=== PATIENT | female | born 1945 | race Caucasian/White ===

== ENCOUNTER 2018-10-02 07:40 | Day surgery (SDC) | payer OTHER ==
[2018-10-02] MEDS ORDERED: NA CHLORIDE 0.9% 1,000 ML ONE (08:06)
[2018-10-02] MEDS ORDERED: LIDOCAINE 1% MPF 5 ML VIAL ONE (10:02)
[2018-10-02] MEDS ORDERED: PROPOFOL 200 MG/20 ML VIAL IV ONE ×3 (10:02→11:09)
[2018-10-02 11:03] VITALS: TEMP 97.3
[2018-10-02 11:27] VITALS: BP 128/72; O2SAT 98
--- NOTE | 2018-10-02 11:52 | ENDO RPT ---
[address], [address] COLONOSCOPY PROCEDURE REPORT EXAM DATE: 10/02/2018 PATIENT NAME: Montse Arce MR #: [id number] BIRTHDATE: 1945 ATTENDING: Perez Hernández DR STATUS: outpatient PLATEN BUILDER UP: Mat Nolan cfgAdvance Tech INDICATIONS: The patient is a 72 yr old Female here for a colonoscopy due to colon cancer screening PROCEDURE PERFORMED: Colonoscopy with biopsy - cold polypectomy MEDICATIONS: Per Anesthesia. ESTIMATED BLOOD LOSS: None CONSENT: The patient understands the risks and benefits of the procedure and understands that these risks include, but are not limited to: sedation, allergic reaction, infection, perforation and/or bleeding. Alternative means of evaluation and treatment include, among others: physical exam, x-rays, and/or surgical intervention. The patient elects to proceed with this endoscopic procedure. DESCRIPTION OF PROCEDURE: During intra-op preparation period all mechanical medical equipment was checked for proper function. Hand hygiene and appropriate measures for infection prevention was taken. Procedure, possible complications, alternatives including, but not limited to possibility of bleeding, perforation, tear, infection, sepsis, need for surgery, need for blood transfusion, were explained to the patient. After the risks, benefits and alternatives of the procedure were thoroughly explained, Informed consent was verified, confirmed and timeout was successfully executed by the treatment team. The patient was placed in the left lateral position. A digital rectal exam was performed and revealed internal hemorrhoids. After appropriate level of anesthesia, the scope was passed. The EC-3890Li ([id number]) endoscope was introduced through the anus and advanced to the cecum, which was identified by both the appendix and ileocecal valve. The quality of the prep was poor. The instrument was then slowly withdrawn as the colon was fully examined. Scope withdrawal time was 15 minutes. COLON FINDINGS: Two small smooth and polypoid shaped semi-pedunculated polyps with friable surfaces were found at the cecum and hepatic flexure. A polypectomy was performed using snare cautery. The resection was complete, the polyp tissue was completely retrieved and sent to histology. Retroflexed views revealed no abnormalities. The scope was then completely withdrawn from the patient and the procedure terminated. ADVERSE EVENTS: There were no complications. IMPRESSIONS: Two small semi-pedunculated polyps were found at the cecum and hepatic flexure; polypectomy was performed using snare cautery RECOMMENDATIONS: 1. avoid NSAIDS for 2 weeks 2. await biopsy results 3. fiber rich diet 4. follow-up: office 2 week(s) 5. Monitor for any evidence of rectal bleeding. 6. See EGD report. 7. hemorrhoidal hygiene 8. increase dietary water RECALL: Return in 2 year(s) for Colonoscopy, pending biopsy results. Poor Prep - 2 Day prep on next colonoscopy Perez Hernández DR eSigned: Perez Hernández DR 10/02/2018 10:58 AM cc: CPT CODES: ICD9 CODES: PATIENT NAME: Montse Arce MR#: [id number]
--- NOTE | 2018-10-02 11:52 | ENDO RPT ---
[address], [address] EGD PROCEDURE REPORT EXAM DATE: 10/02/2018 PATIENT NAME: Montse Arce MR#: [id number] BIRTHDATE: 1945 ATTENDING: Perez Hernández DR STATUS: outpatient BUTCHER HELPER: Tara Kuhn RN, Saranya Calle, and Mat Calle INDICATIONS: The patient is a 72 yr old Female here for an EGD due to Personal history of Babin's esophagus PROCEDURE PERFORMED: EGD with biopsy MEDICATIONS: Per Anesthesia. TOPICAL ANESTHETIC: none CONSENT: The patient understands the risks and benefits of the procedure and understands that these risks include, but are not limited to: sedation, allergic reaction, infection, perforation and/or bleeding. Alternative means of evaluation and treatment include, among others: physical exam, x-rays, and/or surgical intervention. The patient elects to proceed with this endoscopic procedure. DESCRIPTION OF PROCEDURE: During intra-op preparation period all mechanical medical equipment was checked for proper function. Hand hygiene and appropriate measures for infection prevention was taken. Procedure, possible complications, and alternatives including but not limited to the possibility of bleeding, perforation, tear, infection, sepsis, need for surgery, need for blood transfusion, and anesthesia related complications were explained to the patient. After the risks, benefits and alternatives of the procedure were thoroughly explained, Informed consent was verified, confirmed and timeout was successfully executed by the treatment team. The patient was placed in the left lateral position. The patient was anesthetized with topical anesthesia. Through the anesthetized oropharyngeal area, the scope was passed without any difficulty. The EC-3890Li ([id number]) and Pentax EG-[id number] ([id number]) endoscope was introduced through the mouth and advanced to the second portion of the duodenum. Retroflexed views revealed a moderate sized hiatal hernia. The gastroscope was then slowly withdrawn and removed. Duodenitis was found in the bulb and descending duodenum. A biopsy of the GEJ was obtained to rule out Babin's in 4 quadrants at the Z line. A biopsy for H. pylori was taken. Mild gastritis was found at the pylorus. A biopsy was performed for pathology and for H. pylori. A moderate sized hiatal hernia was found in the fundus @ 38 cm from incisors, A biopsy for was perfomed as well as specimen for H. pylori was taken. Z-Line was slightly irregular, no obvious Barretts, no nodularity. ADVERSE EVENTS: There were no complications. IMPRESSIONS: 1. Duodenitis was found in the bulb and descending duodenum 2. Mild gastritis was found at the pylorus 3. 38 cm A moderate sized hiatal hernia was found in the fundus 4. Z-Line was slightly irregular, no obvious barretts, no nodularity. RECOMMENDATIONS: 1. acid suppression therapy 2. anti-reflux regimen 3. await biopsy results 4. follow-up: office 2 week(s) 5. avoid NSAIDS 6. follow-up of helicobacter pylori status, treat if indicated REPEAT EXAM: Return in 2 year(s) for EGD. Perez Hernández DR eSigned: Perez Hernández DR 10/02/2018 10:54 AM cc: CPT CODES: ICD9 CODES: PATIENT NAME: Montse Arce MR#: [id number]
== END 2018-10-02 11:30 | disposition home or self-care (01) ==
LOC: OR 07:40
PROVIDERS: ATTEND Surgery
PROC: 0DBH8ZX Excision of Cecum, Via Natural or Artificial Opening Endoscopic, Diagnostic (ICD-10-PCS; 2018-10-02)
PROC: 0DBL8ZX Excision of Transverse Colon, Via Natural or Artificial Opening Endoscopic, Diagnostic (ICD-10-PCS; 2018-10-02)
PROC: 0DB48ZX Excision of Esophagogastric Junction, Via Natural or Artificial Opening Endoscopic, Diagnostic (ICD-10-PCS; principal; 2018-10-02 09:15)
PROC: 0DB78ZX Excision of Stomach, Pylorus, Via Natural or Artificial Opening Endoscopic, Diagnostic (ICD-10-PCS; 2018-10-02 09:15)
DX: Z12.11 Encounter for screening for malignant neoplasm of colon (principal); D12.2 Benign neoplasm of ascending colon; D12.0 Benign neoplasm of cecum; K29.50 Unspecified chronic gastritis without bleeding; K21.0 Gastro-esophageal reflux disease with esophagitis; K44.9 Diaphragmatic hernia without obstruction or gangrene; K29.80 Duodenitis without bleeding; K64.8 Other hemorrhoids; I10 Essential (primary) hypertension; E11.9 Type 2 diabetes mellitus without complications; E78.5 Hyperlipidemia, unspecified; J44.9 Chronic obstructive pulmonary disease, unspecified; Z79.82 Long term (current) use of aspirin; Z85.828 Personal history of other malignant neoplasm of skin; Z80.1 Family history of malignant neoplasm of trachea, bronchus and lung
CPT/HCPCS: 82962; 88305; 88312; 88313; J2704; J7030

== ENCOUNTER 2019-03-10 06:41 | Day surgery (SDC) | payer OTHER ==
--- NOTE | 2019-03-07 11:35 | RAD REPORT ---
EXAM DESCRIPTION: Vikram Sparks And Lat (2 Views)03/07/2019 11:21 am CLINICAL HISTORY: Preop for breast surgery COMPARISON: January 2019 FINDINGS: The lungs appear clear of acute infiltrate. The heart is normal size. The aorta is tortuo us/ectatic IMPRESSION: No acute abnormalities displayed
[2019-03-07 12:28] LABS: Basophils % 1.2 % (0-1.3); Hematocrit 37.4 % (36.0-45.0); Lymphocytes % 26.1 % (15.3-44.8); MPV 9.1 fL (7.6-11.3); RBC Red Blood Cell Count 4.13 M/uL (3.86-4.86)
--- NOTE | 2019-03-07 12:33 | EKG ---
Test Date: 2019-03-07 Test Time: 11:11:48 [employer] Specialist: ISAEL MEASUREMENT RESULTS: Intervals: Rate: 69 IN: 216 QRSD: 94 QT: 392 QTc: 420 [place]: P: 6 IN: 216 QRS: -25 T: 12 INTERPRETIVE STATEMENTS: Sinus rhythm with 1st degree AV block Low voltage QRS Borderline ECG Compared to ECG 03/22/2015 12:05:01 Low QRS voltage now present Myocardial infarct finding no longer present Electronically Signed On 03-07-19 12:32:35 CDT by Buddy Bourgeois
[2019-03-07 12:37] LABS: Potassium 3.7 mmol/L (3.5-5.1)
[2019-03-10] MEDS ORDERED: CEFAZOLIN/SWI 1gm 1 GM/10 ML SYR ONE (06:44)
[2019-03-10] MEDS ORDERED: NA CHLORIDE 0.9% 1,000 ML ONE (06:44)
[2019-03-10] MEDS ORDERED: METHYLENE BLUE 0.5% 10 ML AMP ONE (08:38)
[2019-03-10] MEDS ORDERED: PROPOFOL 200 MG/20 ML VIAL IV ONE (08:40)
[2019-03-10] MEDS ORDERED: MIDAZOLAM HCL 2 MG/2 ML INJ ONE (08:40)
[2019-03-10] MEDS ORDERED: FENTANYL CITR 100 MCG/2 ML ONE (08:40)
[2019-03-10] MEDS ORDERED: LIDOCAINE 2% MPF 5 ML VIAL ONE (08:40)
[2019-03-10] MEDS ORDERED: ONDANSETRON 4 MG/2 ML VIAL ONE (08:41)
--- NOTE | 2019-03-10 09:15 | RAD REPORT ---
EXAM DESCRIPTION: US - Brst,Preop NL Wire Init w/Guid - 03/10/2019 9:06 am CLINICAL HISTORY: Preoperative knee localization left breast mass COMPARISON: Ultrasound imaging January 31 TECHNIQUE: Patient presents for ultrasound-guided needle localization of a 13 millimeter hypoechoic mass retroareolar left breast. Prior imaging studies were reviewed. Consent was obtained as part of t he surgical consent. The needle localization portion of today's procedures was discussed with the patient in detail. Kanika ariza consent was obtained. Preliminary imaging identified the hypoechoic mass retroareolar 12 o'clock left breast. Anterior skin was prepped and draped in the usual sterile fashion. From a lateral approach a 7.5 centimeter long H elizabeth mammo lock needle was advanced. Prior to localization needle placement skin and deeper tissues w ere anesthetized with 1% lidocaine. The localization needle was advanced. Tip was placed on the deep or posterior margin of the mass and the hookwire set. Patient tolerated procedure without complications and was transferred back to the surgical holding ar ronak pending excisional biopsy. IMPRESSION: Ultrasound-guided needle localization was performed of the retroareolar 12 o'clock left breast mass.
[2019-03-10] MEDS ORDERED: KETOROLAC 30 MG/ML INJ ONE (09:50)
[2019-03-10 10:34] VITALS: TEMP 97.6
--- NOTE | 2019-03-10 11:22 | RAD REPORT ---
EXAM DESCRIPTION: US - Surgical Specimen - 03/10/2019 10:02 am FINDINGS: Limited sonography was performed of the specimen. Zero choir remained within the specimen tissue. Sonographic evaluation shows an intact 8 millimeter component of the previously localized mass. The l arger component appears to have collapsed. This may represent a complex cyst. No other significant or unexpected findings noted.
[2019-03-10 11:31] VITALS: BP 146/58; O2SAT 97
--- NOTE | 2019-03-10 21:13 | OP ---
Date of Procedure: 03/10/2019 Surgeon: Iain Flower MD Preoperative Diagnosis: Left breast mass. Postoperative Diagnosis: Left breast mass. Procedure: Needle localization with excision of left breast mass. Estimated Blood Loss: Minimal. Specimens: Left breast mass. Finding: As above. Anesthesia: General. Complications: None. Disposition: Patient tolerated the procedure in stable condition, taken to Recovery in good general condition. Procedure In Detail: The patient was brought to the OR and placed in supine position. General anest hesia was begun. Patient was prepped and draped in usual sterile fashion. A 15-blade was used to ma ke a curvilinear incision at approximately 3 cm at the 12 o'clock position around the nipple-areolar margins. Subcu tissue divided. Tract of the needle identified, core tissue at the tip of the needle excised, sent to Radiology, confirmation obtained. Wound irrigated. Bleeding controlled with caute ry. 2-0 chromic used to approximate the subcutaneous tissue and close the skin. Sterile dressing wa s applied. The patient was awakened and taken to Recovery in good general condition. Discharge Note: The patient will go to Day Surgery and home when stable. Disposition: Home. Condition: Stable. Discharge Instructions: Resume home medications and diet. Activity as tolerated. No heavy lifting. Remove outer dressing in 2 days. Shower. Keep wound clean and dry. Follow up in my office in a meryl thayer, call for appointment. Tylenol No. 3 one tablet p.o. q.4 p.r.n. pain. Keep Steri-Strips on at a ll times. /MODL Voice ID: [id number] Report ID: [id number]
== END 2019-03-10 11:30 | disposition home or self-care (01) ==
LOC: OR 06:41
PROVIDERS: ATTEND Surgery
PROC: 0HBU0ZX Excision of Left Breast, Open Approach, Diagnostic (ICD-10-PCS; principal; 2019-03-10 09:00)
DX: D24.2 Benign neoplasm of left breast (principal); N63.21 Unspecified lump in the left breast, upper outer quadrant; N60.92 Unspecified benign mammary dysplasia of left breast; N60.82 Other benign mammary dysplasias of left breast; N60.42 Mammary duct ectasia of left breast; E11.9 Type 2 diabetes mellitus without complications; Z79.84 Long term (current) use of oral hypoglycemic drugs; Z79.899 Other long term (current) drug therapy
CPT/HCPCS: 19125; 93005; 85025; 80048; 36415; 82962 ×2; 88305; 71046; 76098; 19285; J2704; J2250; J3010; J0690; J7030; J2405

== ENCOUNTER 2021-03-14 07:50 | Day surgery (SDC) | payer OTHER ==
[2021-03-14] MEDS: NA CHLORIDE 0.9% 1,000 ML ONE (08:20)
[2021-03-14] MEDS ORDERED: LIDOCAINE 1% MPF 5 ML VIAL ONE (09:27)
[2021-03-14] MEDS ORDERED: propofoL 200 MG/20 ML VIAL IV ONE ×2 (09:27→09:28)
--- NOTE | 2021-03-14 09:40 | ENDO RPT ---
[address], [address] COLONOSCOPY PROCEDURE REPORT EXAM DATE: 03/14/2021 PATIENT NAME: Montse Arce MR #: [id number] BIRTHDATE: 1945 ATTENDING: Perez Hernández DR STATUS: outpatient RESERVATIONS CLERK: Frances Hunt RN and Izzy Chu RN INDICATIONS: The patient is a 75 yr old Female here for a colonoscopy due to colon cancer screening PROCEDURE PERFORMED: Colonoscopy and Screening Colonoscopy MEDICATIONS: Per Anesthesia. ESTIMATED BLOOD LOSS: None CONSENT: The patient understands the risks and benefits of the procedure and understands that these risks include, but are not limited to: sedation, allergic reaction, infection, perforation and/or bleeding. Alternative means of evaluation and treatment include, among others: physical exam, x-rays, and/or surgical intervention. The patient elects to proceed with this endoscopic procedure. DESCRIPTION OF PROCEDURE: During intra-op preparation period all mechanical medical equipment was checked for proper function. Hand hygiene and appropriate measures for infection prevention was taken. Procedure, possible complications, alternatives including, but not limited to possibility of bleeding, perforation, tear, infection, sepsis, need for surgery, need for blood transfusion, were explained to the patient. After the risks, benefits and alternatives of the procedure were thoroughly explained, Informed consent was verified, confirmed and timeout was successfully executed by the treatment team. The patient was placed in the left lateral position. A digital rectal exam was performed and revealed internal hemorrhoids. After appropriate level of anesthesia, the scope was passed. The EC-3890Li ([id number]) endoscope was introduced through the anus and advanced to the cecum, which was identified by both the appendix and ileocecal valve. The quality of the prep was fair. The instrument was then slowly withdrawn as the colon was fully examined. Scope withdrawal time was 8 minutes. COLON FINDINGS: A normal appearing cecum, ileocecal valve, and appendiceal orifice were identified. the ascending, transverse, descending, sigmoid colon, and rectum appeared unremarkable. Retroflexed views revealed no abnormalities. The scope was then completely withdrawn from the patient and the procedure terminated. ADVERSE EVENTS: There were no complications. IMPRESSIONS: A normal appearing cecum, ileocecal valve, and appendiceal orifice were identified. the ascending, transverse, descending, sigmoid colon, and rectum appeared unremarkable RECOMMENDATIONS: 1. await biopsy results 2. fiber rich diet 3. Monitor for any evidence of rectal bleeding. 4. hemorrhoidal hygiene 5. yearly hemoquant 6. yearly hemoccult starting in 4 years 7. increase dietary water RECALL: Return in 5 year(s) for Colonoscopy. Cologuard in [address] eSigned: Perez Hernández DR 03/14/2021 9:40 AM cc: CPT CODES: ICD9 CODES: PATIENT NAME: Montse Arce MR#: [id number]
[2021-03-14 14:20] VITALS: O2SAT 98
[2021-03-14 14:23] VITALS: BP 123/66
== END 2021-03-14 10:20 | disposition home or self-care (01) ==
LOC: OR 07:50
PROVIDERS: ATTEND Surgery
PROC: 0DJD8ZZ Inspection of Lower Intestinal Tract, Via Natural or Artificial Opening Endoscopic (ICD-10-PCS; principal; 2021-03-14 09:15)
DX: Z12.11 Encounter for screening for malignant neoplasm of colon (principal); K64.8 Other hemorrhoids; J44.9 Chronic obstructive pulmonary disease, unspecified; E11.9 Type 2 diabetes mellitus without complications; I10 Essential (primary) hypertension; Z20.822 Contact with and (suspected) exposure to COVID-19
CPT/HCPCS: 82947; U0003; J2704 ×2; J7030; G0121

== ENCOUNTER 2022-06-21 07:46 | Day surgery (SDC) | payer OTHER ==
--- NOTE | 2022-06-19 15:44 | RAD REPORT ---
EXAM DESCRIPTION: RAD - Chest Pa And Lat (2 Views) - 06/19/2022 3:39 pm CLINICAL HISTORY: Pre op pending lesion removal from toe Chest pain. COMPARISON: Chest Pa And Lat (2 Views) dated 03/07/2019; Chest Pa And Lat (2 Views) dated 01/13/2019; C HEST SINGLE VIEW dated 02/24/2015; CHEST SINGLE VIEW dated 12/01/2008 TECHNIQUE: PA and lateral views of the chest were obtained. FINDINGS: The lungs are hyperexpanded compatible with COPD. The heart is upper limit of normal in si ze. No fracture or aggressive bony process. IMPRESSION: COPD without acute process identified.
[2022-06-19 16:03] LABS: Absolute Lymphocytes (CBC) 2.4 K/uL (0.7-4.9); Hematocrit 37.1 % (36.0-45.0); Lymphocytes % 23.3 % (15.3-44.8); MCV 90.3 fL (80-100); MPV 8.2 fL (7.6-11.3); RBC Red Blood Cell Count 4.11 M/uL (3.86-4.86)
[2022-06-19 16:14] LABS: Potassium 4.2 mmol/L (3.5-5.1)
--- NOTE | 2022-06-20 08:22 | EKG ---
Test Date: 2022-06-19 Test Time: 15:25:03 Program Manufacturing Leader: DARRELL MEASUREMENT RESULTS: Intervals: Rate: 72 NC: 212 QRSD: 138 QT: 420 QTc: 459 [place]: P: -2 NC: 212 QRS: 5 T: 56 INTERPRETIVE STATEMENTS: Sinus rhythm with 1st degree AV block Left bundle branch block Abnormal ECG Compared to ECG 03/07/2019 11:11:48 Left bundle-branch block now present Electronically Signed On 06-20-22 08:19:50 CENTRAL SCHEDULER by Buddy Bourgeois
[2022-06-21] MEDS ORDERED: Ringers Lactate 1,000 ML IV ONE (07:54)
[2022-06-21] MEDS ORDERED: NA CHLORIDE 0.9% 1,000 ML ONE (08:20)
[2022-06-21] MEDS: CEFAZOLIN SODIUM 1 GM/VIAL ONE ×2 (08:27→09:37)
[2022-06-21] MEDS ORDERED: propofoL 200 MG/20 ML VIAL IV ONE (09:27)
[2022-06-21] MEDS ORDERED: FENTANYL CITR 100 MCG/2 ML ONE (09:28)
[2022-06-21] MEDS ORDERED: MIDAZOLAM HCL 2 MG/2 ML INJ ONE (09:28)
[2022-06-21] MEDS ORDERED: ONDANSETRON 4 MG/2 ML VIAL ONE (10:06)
--- NOTE | 2022-06-21 10:13 | P.BOP ---
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
[2022-06-21 14:28] VITALS: BP 142/62; TEMP 97.1; O2SAT 99
--- NOTE | 2022-06-21 19:20 | DS ---
Diagnosis: Lentiginous junctional severe dysplastic nevus. Procedure: Wide excision of severe dysplastic nevus. Disposition: Home. Activity: As tolerated. No heavy lifting. Discharge Instructions: Keep area dry and clean until next visit. If she take a shower, she may use the cast protector just to cover her foot so her foot does not get wet. DOMONIQUE/ECHO Voice ID: [id number] Report ID: [id number]
--- NOTE | 2022-06-21 19:20 | OP ---
Date of Procedure: 06/21/2022 Surgeon: Quang Traore MD Preoperative Diagnosis: Lentiginous junctional severe dysplastic nevus on the right medial toe. Postoperative Diagnosis: Lentiginous junctional severe dysplastic nevus on the right medial toe. Procedure: Wide excision of about 2 x 2 cm of lentiginous junctional severe dysplastic nevus in the right medial toe. Estimated Blood Loss: Less than 2 cc. Findings: Right medial toe. Anesthesia: General plus local. Indications: This is the case of a 76-year-old patient who had a biopsy done locally by physician bee at shows severe dysplastic changes over the hyperpigmented lesion on her toe and complete wide excisi on was recommended. The patient was all for wide excision. She does not want to have it done in the office due to pain. She wants that done under anesthesia so we scheduled her to have it done under anesthesia since the area is very tender. The benefits, alternatives, and risks were fully explained , which include but are not limited to infection, bleeding, damage to adjacent structures, anesthesia complication, recurrence, TN, and even . She also understands this may not relieve the symptom s and she might need more than one surgical intervention. She understood and signed a consent. Procedure In Detail: Patient was brought to the operating room and placed in supine position. Anest hesia was done without complication. The area of concern was previously marked by me and the patient in the holding room. A wedge incision was made in the skin with gross negative margins all the way down to subcutaneous tissue. Mass was marked for orientation, but the pathologist preferred to be se nt a complete instead of frozen section. So we sent the specimen to the pathologist, irrigated subcu taneous tissue, obtained hemostasis, put some local anesthetic and then closed the area with 3-0 nylo n interrupted multiple times. The patient tolerated the procedure well. Patient was sent to recover y in stable condition. DOMONIQUE/AALIYAHL Voice ID: [id number] Report ID: [id number]
== END 2022-06-21 11:40 | disposition home or self-care (01) ==
LOC: OR 07:46
PROVIDERS: ATTEND Surgery
PROC: 0HBMXZZ Excision of Right Foot Skin, External Approach (ICD-10-PCS; principal; 2022-06-21 09:30)
DX: D23.71 Other benign neoplasm of skin of right lower limb, including hip (principal); I10 Essential (primary) hypertension; J44.9 Chronic obstructive pulmonary disease, unspecified; E11.9 Type 2 diabetes mellitus without complications; E78.00 Pure hypercholesterolemia, unspecified; I51.9 Heart disease, unspecified
CPT/HCPCS: 93005; 85025; 80048; 36415; 82947 ×2; 88305; 71046; 11422; J2704; J2250; J3010; J7120; J7030; J2405; J0690